=== PATIENT | female | born 1955 | race African-American/Black ===

== ENCOUNTER 2024-09-24 04:14 | Emergency (ER) | payer MEDICARE, MEDICAID ==
[~2024-09-24] VITALS: Ht 154.9 cm; Wt 90.9 kg
[2024-09-24 04:26] VITALS: TEMP 98.1
[2024-09-24 04:59] LABS: BASOPHILS % (AUTO) 0.1 % (0.0-2.0); EOSINOPHILS % (AUTO) 0.2 % (1.0-6.0); HEMOGLOBIN 13.1 g/dL (12.0-16.0); LYMPHOCYTES # (AUTO) 0.8 K/uL (1.0-4.8); LYMPHOCYTES % (AUTO) 8.3 % (22.0-44.0); MEAN CORPUSCULAR HEMOGLOBIN 31.3 pg (26.0-34.0); MEAN CORPUSCULAR HGB CONC 33.6 G/dL (31.0-37.0); MEAN CORPUSCULAR VOLUME 93 fL (80-100); MONOCYTES # (AUTO) 0.5 K/uL (0.1-1.0); MONOCYTES % (AUTO) 5.1 % (2.0-9.0); NEUTROPHILS # (AUTO) 8.7 K/uL (1.8-7.7); PLATELET COUNT (AUTO) 225 K/uL (150-450); RED BLOOD CELL COUNT(AUTO) 4.19 MIL/uL (4.00-5.20); RED CELL DISTRIBUTION WIDTH 12.8 % (11.5-14.5); WHITE BLOOD COUNT (AUTO) 10.1 K/uL (4.5-11.0)
[2024-09-24 05:05] LABS: APPEARANCE,URINE CLEAR (CLEAR); BILIRUBIN,URINE NEGATIVE (NEGATIVE); COLOR,URINE YELLOW (YELLOW); GLUCOSE, URINE (UA) NEGATIVE (NEGATIVE); KETONES,URINE NEGATIVE (NEGATIVE); LEUKOCYTE ESTERASE ,URINE NEGATIVE (NEGATIVE); NITRATE,URINE NEGATIVE (NEGATIVE); OCCULT BLOOD,URINE NEGATIVE (NEGATIVE); PROTEIN,URINE 30-70 mg/dL (NEGATIVE); SPECIFIC GRAVITIY, URINE 1.022 (1.003-1.030); UROBILINOGEN,URINE <=1.0 mg/dL (<=1.0)
[2024-09-24 05:07] LABS: NEUTROPHILS % (AUTO) 86.3 % (40.0-70.0)
[2024-09-24 05:11] LABS: ANION GAP 7 mmol/L (8-16); CALCIUM, TOTAL 9.3 mg/dL (8.8-10.5); CARBON DIOXIDE 27 mmol/L (22-29); CHLORIDE 106 mmol/L (98-107); GLOMERULAR FILTR. RATE CALC > 60 mL/min (>60); GLUCOSE,RANDOM 153 mg/dL (70-110); POTASSIUM 3.5 mmol/L (3.5-5.1); SODIUM SERUM 140 mmol/L (136-145); UREA NITROGEN, BLOOD 9 mg/dL (7-18)
[2024-09-24 05:15] LABS: ALBUMIN 3.6 g/dL (3.4-5.0); BILIRUBIN,DIRECT 0.1 mg/dL (0.00-0.20); BILIRUBIN,TOTAL 0.5 mg/dL (0.1-1.0); TOTAL PROTEIN, SERUM 7.3 g/dL (6.4-8.2)
[2024-09-24 05:40] LABS: RBC MORPHOLOGY COMMENT NORMAL RBC MORPH
[2024-09-24] MEDS: ONDANSETRON HCL 4 MG/2 ML VIAL IVP ONE (06:08)
[2024-09-24] MEDS ORDERED: IOHEXOL 350 MG/ML 100 ML VIAL ONE ×2 (06:15→07:13)
[2024-09-24 06:27] LABS: MAGNESIUM 1.9 mg/dL (1.80-2.40)
[2024-09-24 06:36] LABS: TROPONIN I-HIGH SENSITIVITY 9 ng/L (<51)
[2024-09-24 06:37] LABS: PROTHROMBIN TIME 10.9 SEC (9.4-11.6)
[2024-09-24] MEDS: PANTOPRAZOLE SODIUM 40 MG/VIAL IVP ONE (06:54)
[2024-09-24] MEDS ORDERED: SODIUM CHLORIDE 0.9% 100 ML ONE (07:13)
[2024-09-24] MEDS: PANTOPRAZOLE SODIUM 80 MG in SODIUM CHLORIDE 0.9% 100 ML IV SCH (07:14)
[2024-09-24] MEDS: MORPHINE SULFATE 2 MG/ML SYRINGE IVP ONE (07:22)
[2024-09-24 07:26] LABS: COVID AG,FIA SOURCE NASAL SWAB
[2024-09-24 07:51] LABS: SARS-COV2 (COVID) ANTIGEN,FIA Negative (Negative)
[2024-09-24 07:52] LABS: INFLUENZA TYPE A NEGATIVE FOR TYPE A (NEGATIVE); INFLUENZA TYPE B NEGATIVE FOR TYPE B (NEGATIVE)
[2024-09-24] MEDS: SODIUM CHLORIDE 0.9% 1,000 ML IV ONE (08:42)
[2024-09-24 20:30] VITALS: BP 129/68; PULSE 69; RESP 16; O2SAT 99
== END 2024-09-24 21:56 | disposition admitted as inpatient to this hospital (09) ==
LOC: EMS 04:18
DX: K92.0 Hematemesis (principal); R07.9 Chest pain, unspecified; R06.02 Shortness of breath; I10 Essential (primary) hypertension; Z20.822 Contact with and (suspected) exposure to COVID-19
CPT/HCPCS: 70491; 99285; 96365; 96375; 96361; 87426; 80048; 80076; 81003; 83690; 83735; 83880; 84484; 85025; 85610; 85730; 87804; 86850; 86900; 86901; 71260; 72193; 74160; 93005; 96376; 36415; Q9967; J2270; J2405; J2470; J7030; J7050